=== PATIENT | male | born 1980 | race Two or more races ===

== ENCOUNTER 2019-04-17 08:39 | Emergency (ER) | payer OTHER ==
[2019-04-17 08:45] VITALS: BP 143/74; PULSE 104; TEMP 97.8; BMI 44.4
[2019-04-17] MEDS ORDERED: ONDANSETRON 4 MG/2 ML VIAL IVPUSH ONE (09:04)
[2019-04-17] MEDS ORDERED: KETOROLAC TROMETHAMINE 30 MG/1 ML VIAL IVPUSH ONE (09:04)
[2019-04-17] MEDS ORDERED: SODIUM CHLORIDE 1,000 ML IV STA (09:04)
[2019-04-17] MEDS ORDERED: ONDANSETRON 4 MG/2 ML VIAL ONE (09:22)
[2019-04-17] MEDS ORDERED: KETOROLAC TROMETHAMINE 30 MG/1 ML VIAL ONE (09:22)
--- NOTE | 2019-04-17 09:23 | PDOC ---
*Physical Exam - Vital Signs Last Vital Signs Temp Pulse Resp BP Pulse Ox 97.8 F 104 H 18 143/74 94 L 04/17/19 08:42 04/17/19 08:42 04/17/19 08:42 04/17/19 08:42 04/17/19 08:42 ED Treatment Course - LABORATORY CBC & Chemistry Diagram: 04/17/19 09:35 04/17/19 09:35 Medical Decision Making - Medical Decision Making 04/17/19 09:23 38 yo M presenting to the ER with a complaint of testicular pain Pt seen by Midlevel Provider under my direct supervision Pt interviewed and examined Ancillary studies reviewed Scrotal US- nml, no torsion, no masses, no varicocele CT - no stones, CT does not comment on presence of hernia I agree with plan as outlined by Midlevel Provider D/c with prompt PMD follow up Return for worsening symptoms 04/17/19 11:32 04/17/19 11:34 04/17/19 11:35 04/17/19 12:09 *DC/Admit/Observation/Transfer Diagnosis at time of Disposition: Abdominal pain - Discharge Dispostion Disposition: HOME Condition at time of disposition: Improved - Prescriptions Prescriptions: Ondansetron HCl [Zofran] 4 mg PO TID PRN #12 tablet PRN Reason: Nausea And/Or Vomiting - Referrals Referrals: Mike Ortega MD [Primary Care Provider] - - Patient Instructions Printed Discharge Instructions: DI for Abdominal Pain-Adult Additional Instructions: Take Zofran as needed for nausea. May take Aleve for discomfort. Please bring copy of your labs and imaging results with you to Dr. Ortega's office on April 19. - Post Discharge Activity
--- NOTE | 2019-04-17 09:32 | PDOC ---
History of Present Illness - General Chief Complaint: Pain, Acute Stated Complaint: TESTICULAR PAIN/ ABD.PAIN Time Seen by Provider: 04/17/19 09:00 History Source: Patient Exam Limitations: No Limitations - History of Present Illness Travel History: No Initial Comments: 04/17/19 09:07 38-year-old male presents to ED with complaints of lower abdomen sharp pressure worsen in the testicle area radiating to his right flank area. Patient states approximately one week ago went to his primary care doctor which had noted blood in his urine without continuation of workup including imaging. Patient denies history of renal colic, gallstones, recent travel, GI history, fever, chills, diarrhea but does state nausea. patient denies any protrusion to his abdomen, penile discharge or dysuria. Timing/Duration: reports: getting worse Quality: reports: moderate Abdominal Pain Onset Location: reports: flank Pain Radiation: reports: RLQ, other (testicles) Aggravating Factors: improves with: None Alleviating Factors: improves with: None Past History - Travel Traveled outside of the country in the last 30 days: No Close contact w/someone who was outside of country & ill: No - Past Medical History Allergies/Adverse Reactions: Allergies Allergy/AdvReac Type Severity Reaction Status Date / Time Sulfa (Sulfonamide Allergy Verified 04/17/19 08:45 Antibiotics) Home Medications: Ambulatory Orders Divalproex *ER* [Depakote *ER* -] 250 mg PO BID #14 tablet. 03/05/14 Divalproex *ER* [Depakote *ER* -] 250 mg PO DAILY #15 tablet. 03/05/14 Phenobarbital 64.8 mg PO BID 03/05/14 levETIRAcetam [Keppra -] 2,000 mg PO BID 03/05/14 levETIRAcetam [Keppra -] 2,000 mg PO BID #56 tablet 03/05/14 levETIRAcetam [Keppra -] 500 mg PO BID #60 tablet 03/05/14 COPD: No Seizures: Yes - Surgical History Cholecystectomy: Yes - Suicide/Smoking/Psychosocial Hx Smoking History: Never smoked Number of Cigarettes Smoked Daily: 0 Hx Alcohol Use: Yes Drug/Substance Use Hx: No Patient Lives Alone: No Lives with/in: spouse/SO Review of Systems - Review of Systems Able to Perform ROS?: Yes Constitutional: No: Symptoms Reported HEENTM: No: Symptoms Reported Respiratory: No: Symptoms reported Cardiac (ROS): No: Symptoms Reported ABD/GI: Yes: Nausea, Abdominal cramping : Yes: Flank Pain, Hematuria, Testicular Pain. No: Dysuria, Discharge, Testicular Mass, Testicular Swelling, Lesions Musculoskeletal: No: Symptoms Reported Integumentary: No: Symptoms Reported Neurological: No: Symptoms reported Endocrine: No: Symptoms Reported Hematologic/Lymphatic: No: Symptoms Reported *Physical Exam - Vital Signs Last Vital Signs Temp Pulse Resp BP Pulse Ox 97.8 F 104 H 18 143/74 94 L 04/17/19 08:42 04/17/19 08:42 04/17/19 08:42 04/17/19 08:42 04/17/19 08:42 - Physical Exam General Appearance: Yes: Nourished, Appropriately Dressed. No: Apparent Distress HEENT: negative: Pale Conjunctivae Respiratory/Chest: positive: Lungs Clear, Normal Breath Sounds. negative: Respiratory Distress, Accessory Muscle Use Cardiovascular: positive: Regular Rhythm, Tachycardia. negative: Murmur Gastrointestinal/Abdominal: positive: Soft, Tenderness (right upper quadrant. positive [place]'s) Male Genitalia: positive: normal genitalia. negative: discharge, testicular tenderness, testicular mass, epididymus tender Musculoskeletal: positive: CVA Tenderness (R) Extremity: positive: Normal Inspection Integumentary: positive: Normal Color, Warm, Moist Neurologic: positive: Motor Strength 5/5 (ambulatory) ED Treatment Course - LABORATORY CBC & Chemistry Diagram: 04/17/19 09:35 04/17/19 09:35 - RADIOLOGY Radiology Studies Ordered: Category Date Time Status SPIRAL- RENAL-STONE CT [CT] Stat CT Scan 04/17/19 09:04 Ordered SCROTUM AND CONTENTS US [US] Stat Ultrasound 04/17/19 09:02 Ordered Medical Decision Making - Medical Decision Making 04/17/19 09:30 IChief complaint: Right flank pain with nausea radiating to his testicle region greater in the right testicle. Patient denies any other symptoms except for noted hematuria at his PCPs office last week Exam: Right upper quadrant right flank and right suprapubic pain. No testicular edema or mass palpable. No discharge plan: labs, urine, antiemetics,Toradol, IV fluids scrotal ultrasound along with spiral CT 04/17/19 11:45 Laboratory Tests 04/17/19 04/17/19 04/17/19 09:35 09:35 09:35 WBC 9.2 Hgb 14.9 Hct 44.4 Absolute Neuts (auto) 5.6 Sodium 138 Potassium 4.2 Chloride 104 Carbon Dioxide 28 Anion Gap 6 L BUN 10.2 Creatinine 1.0 Est GFR (CKD-EPI)AfAm 111.73 Est GFR (CKD-EPI)NonAf 96.40 Random Glucose 183 H Calcium 8.8 Total Bilirubin 0.4 AST 34 ALT 52 Alkaline Phosphatase 128 H Total Protein 7.1 Albumin 3.5 Lipase 209 Urine Ketones Trace H Urine Nitrite Negative Ur Leukocyte Esterase Negative Scrotal ultrasound negative for acute pathology. Abdominal CT shows multiple mildly prominent right lower quadrant mesenteric lymph nodes seen. Correlation with 3 month follow-up MRI or CT suggested to document stability. Case discussed with patient and has a follow-up appointment with his PCP on April 19 will be given copy of all labs and results. Patient otherwise states nausea and pain has subsided. Will discharge patient home with Zofran. *DC/Admit/Observation/Transfer Diagnosis at time of Disposition: Abdominal pain - Discharge Dispostion Disposition: HOME Condition at time of disposition: Improved - Referrals Referrals: Mike Ortega MD [Primary Care Provider] - - Patient Instructions Printed Discharge Instructions: DI for Abdominal Pain-Adult Additional Instructions: Take Zofran as needed for nausea. May take Aleve for discomfort. Please bring copy of your labs and imaging results with you to Dr. Ortega's office on April 19. - Post Discharge Activity
[2019-04-17 09:42] LABS: BASO % 0.8 % (0-2.0); EOS % 1.6 % (0-4.5); HEMATOCRIT 44.4 % (35.4-49); HEMOGLOBIN 14.9 GM/dL (11.7-16.9); LYMPH % 29.6 % (8-40); MCH 29.6 pg (25.7-33.7); MCHC 33.5 g/dl (32.0-35.9); MEAN CELL VOLUME 88.2 fl (80-96); MEAN PLT VOLUME 9.6 fl (7.5-11.1); MONO % 7.1 % (3.8-10.2); NEUT % 60.9 % (42.8-82.8); PLATELET COUNT 212 K/MM3 (134-434); RBC 5.03 M/mm3 (4.00-5.60); RDW 13.9 % (11.9-15.9); WHITE BLOOD COUNT 9.2 K/mm3 (4.0-10.0)
[2019-04-17 10:07] LABS: URINE APPEARANCE CLEAR; URINE BILIRUBIN NEGATIVE (NEGATIVE); URINE COLOR YELLOW; URINE GLUCOSE (UA) NEGATIVE (NEGATIVE); URINE KETONE TRACE (NEGATIVE); URINE LEUK ESTERASE NEGATIVE (NEGATIVE); URINE NITRITE NEGATIVE (NEGATIVE); URINE PROTEIN NEGATIVE (NEGATIVE)
[2019-04-17 10:12] LABS: ALBUMIN 3.5 g/dl (3.4-5.0); BILIRUBIN,TOTAL 0.4 mg/dL (0.2-1); BLOOD UREA NITROGEN 10.2 mg/dL (7-18); CALCIUM 8.8 mg/dL (8.5-10.1); POTASSIUM 4.2 mmol/L (3.5-5.1); TOT PROT 7.1 g/dl (6.4-8.2)
== END 2019-04-17 12:00 | disposition home or self-care (01) ==
LOC: JER 08:39
PROC: 3E033GC Introduction of Other Therapeutic Substance into Peripheral Vein, Percutaneous Approach (ICD-10-PCS; principal; 2019-04-17)
PROC: 3E0333Z Introduction of Anti-inflammatory into Peripheral Vein, Percutaneous Approach (ICD-10-PCS; 2019-04-17)
DX: R10.31 Right lower quadrant pain (principal)
CPT/HCPCS: 36415; 74176-TC; 76870-TC; 80053; 81003; 83690; 85025; 87086; 96374; 96375; 99281-25; J7030

== ENCOUNTER 2019-10-19 12:28 | Observation (INO) | payer OTHER ==
[2019-10-19 12:46] VITALS: BMI 44.1
--- NOTE | 2019-10-19 12:59 | PDOC ---
History of Present Illness - General Chief Complaint: Seizure Stated Complaint: SEIZURE Time Seen by Provider: 10/19/19 12:59 History Source: Patient, Parent(s) (mother) Exam Limitations: No Limitations - History of Present Illness Initial Comments: 10/19/19 15:56 39yM w PMHx epilepsy presenting w seizure. Pt is poor historian, doesn't remember symptoms, needed mother's guidance to elicit hx. Endorsed 1 week nasal congestion, subjective fevers, multiple petit mal seizures (amnesia, blank stares) lasting up to 5s. Has been taking cough suppressant and Dayquil without relief. Has been tapered off depakote from August - mid September under Dr Post's guidance d/t side effects. Currently only taking keppra for anti- seizure. Mother noted pt usually has multiple petit seizures before grand seizure lasting >20min. Denies alcohol, illicit drug use. Denies cough, chest pain, SOB, urinary/bowel mvmt changes. PCP Dr Ortega Past History - Past Medical History Allergies/Adverse Reactions: Allergies Allergy/AdvReac Type Severity Reaction Status Date / Time Sulfa (Sulfonamide Allergy Verified 10/19/19 12:47 Antibiotics) Home Medications: Ambulatory Orders D-Methorphan/PE/Acetaminophen [Theraflu Expressmax Cold-Cough] 245.5 ml PO PRN 10/19/19 Guaifenesin [Robitussin] 10 ml PO PRN 10/19/19 Multivitamin [Multiple Vitamins] 1 each PO DAILY 10/19/19 Naproxen Sodium [Aleve] 220 mg PO PRN 10/19/19 levETIRAcetam [Keppra -] 1,000 mg PO BID 10/19/19 levETIRAcetam [Keppra -] 250 mg PO BID 10/19/19 COPD: No Seizures: Yes - Surgical History Cholecystectomy: Yes - Psycho Social/Smoking Cessation Hx Smoking History: Never smoked Number of Cigarettes Smoked Daily: 0 Hx Alcohol Use: Yes Drug/Substance Use Hx: No Review of Systems - Review of Systems Constitutional: Yes: Fever. No: Chills HEENTM: Yes: Nose Congestion. No: Eye Pain, Nose Pain, Throat Pain Respiratory: No: Cough, Shortness of Breath Cardiac (ROS): No: Chest Pain, Palpitations ABD/GI: No: Abdominal Distended, Constipated, Diarrhea, Nausea, Vomiting : No: Burning, Dysuria, Hematuria Musculoskeletal: No: Back Pain, Joint Pain Integumentary: No: Bruising, Flushing, Lesions Neurological: Yes: Seizure. No: Headache, Tingling Psychiatric: No: Anxiety, Depression, Stressors Endocrine: No: Excessive Sweating, Flushing, Intolerance to Cold, Intolerance to Heat Hematologic/Lymphatic: No: Anemia, Blood Clots *Physical Exam - Vital Signs Last Vital Signs Temp Pulse Resp BP Pulse Ox 97.9 F 100 H 18 128/81 97 10/19/19 12:41 10/19/19 12:41 10/19/19 12:41 10/19/19 12:41 10/19/19 12:41 - Physical Exam General Appearance: Yes: Nourished, Appropriately Dressed, Mild Distress HEENT: positive: EOMI, TIFFANY, Normal Voice, Nasal Congestion. negative: Scleral Icterus (R), Scleral Icterus (L), Rhinorrhea Neck: positive: Supple. negative: Tender, Rigid Respiratory/Chest: positive: Lungs Clear, Normal Breath Sounds. negative: Chest Tender, Respiratory Distress, Crackles, Rales, Rhonchi, Stridor, Wheezing Cardiovascular: positive: Regular Rhythm, Regular Rate, S1, S2. negative: Edema , Murmur Gastrointestinal/Abdominal: positive: Normal Bowel Sounds, Flat, Soft. negative : Tender, Organomegaly Musculoskeletal: negative: CVA Tenderness (R), CVA Tenderness (L) Neurologic: positive: bundle person II-XII NML intact, Fully Oriented, Alert, Normal Mood/ Affect (flat affect, intermittent confusion), Normal Response, Motor Strength 5/ 5, Responsive, Other (delayed response). negative: Sensory Deficit, Confused, Disoriented ED Treatment Course - LABORATORY CBC & Chemistry Diagram: 10/19/19 14:45 10/19/19 14:45 Medical Decision Making - Medical Decision Making 10/19/19 14:12 EKG sinus tachycardia HR 118, QTc 468, no ST changes CXR poor image, poor inspiration, no consolidation, mediastinum covered by oxygen mask ALP 160, ALP 130, AST 70, CK 210 --- 39yM w PMHx epilepsy presenting w 1wk petit seizure and grand seizure in ED. seizure likely d/t medication under dosing (tapered off depakote last month). Low concern for ACS (no ST changes, no CP) vs PNA (no focal consolidation). Elevated LFTs d/t seizure. Minimal rhabdomyolysis (CK 210). Pending drug levels , UA 120pm eyes rolled back, tongue biting, extremity convulsions lasting 5 min with agitation/confusion post ictal state until 150pm. Restraints placed. Given IM 4 ativan, 10 haldol, 6 versed, IV tylenol, 2L NS, 1g keppra Consulted Dr Post - advised load with esthela, get drug levels, ED workup, admit to hospital Admitted tele Dr Tinajero for seizure Discharge - Discharge Information Problems reviewed: Yes Clinical Impression/Diagnosis: Seizure Qualifiers: Convulsion type: unspecified Qualified Code(s): R56.9 - Unspecified convulsions Condition: Guarded - Follow up/Referral - Patient Discharge Instructions - Post Discharge Activity
[2019-10-19] MEDS ORDERED: LORazepam 2 MG/ML SDV VIAL ONE ×2 (13:15→13:18)
[2019-10-19] MEDS ORDERED: HALOPERIDOL LACTATE 5 MG/ML ONE (13:22)
[2019-10-19] MEDS ORDERED: MIDAZOLAM HCL 2 MG/2 ML SINGLE DOSE VIAL ONE ×2 (13:30→13:37)
[2019-10-19] MEDS ORDERED: SODIUM CHLORIDE 0.9% 500 ML INFUS.BAG IV ONE (14:02)
[2019-10-19] MEDS ORDERED: ACETAMINOPHEN 1000 MG/100 ML VIAL (NON FORMULARY) IVPB ONE (14:02)
[2019-10-19] MEDS ORDERED: ACETAMINOPHEN INJECTION 100 ML IVPB ONE (14:21)
[2019-10-19 15:18] LABS: BASO % 0.5 % (0-2.0); EOS % 0.6 % (0-4.5); HEMATOCRIT 47.2 % (35.4-49); HEMOGLOBIN 15.5 GM/dL (11.7-16.9); LYMPH % 32.7 % (8-40); MCH 28.5 pg (25.7-33.7); MCHC 32.8 g/dl (32.0-35.9); MEAN CELL VOLUME 86.9 fl (80-96); MEAN PLT VOLUME 9.9 fl (7.5-11.1); MONO % 5.2 % (3.8-10.2); PLATELET COUNT 269 K/MM3 (134-434); RBC 5.43 M/mm3 (4.00-5.60); RDW 13.5 % (11.9-15.9); WHITE BLOOD COUNT 12.2 K/mm3 (4.0-10.0)
[2019-10-19 15:54] LABS: ALBUMIN 3.9 g/dl (3.4-5.0); BILIRUBIN,TOTAL 0.8 mg/dL (0.2-1); BLOOD UREA NITROGEN 8.8 mg/dL (7-18); CREATININE 1.2 mg/dL (0.55-1.3); POTASSIUM 3.9 mmol/L (3.5-5.1); TOT PROT 7.8 g/dl (6.4-8.2)
--- NOTE | 2019-10-19 16:17 | PDOC ---
Documentation entered by Lizette Grande SCRIBE, acting as scribe for Melvin Dennis MD. Melvin Dennis MD: This documentation has been prepared by the Christiane plascencia Brenda, SCRIBE, under my direction and personally reviewed by me in its entirety. I confirm that the documentation accurately reflects all work, treatment, procedures, and medical decision making performed by me. Attending Attestation - Resident Resident Name: Setphen Cruz - ED Attending Attestation I have performed the following: I have examined & evaluated the patient, The case was reviewed & discussed with the resident, I agree w/resident's findings & plan, Exceptions are as noted - HPI HPI: 10/19/19 16:17 39 M with h/o epilepsy on keppra presenting to ED with increased seizure frequency. Per mother, pt has been having frequent partial seizures. He will have twitching movements and stare into space. Mother reports several over the past week. Today, pt had a GTC, prompting her to call EMS. She also notes pt has had 1 week of nasal congestion and subjective fevers. In ED, pt initially presented somnolent and post-ictal. However, while in ED he had witnessed GTC, followed by post-ictal period during which he was extremely agitated, requiring both physical and chemical restraints. Upon reassessment, pt is more awake and cooperative. Now only complains of pain in both shoulders. Denies F/C. Denies Cp/SOB. Denies MANDUJANO/N/V. Denies neck stiffness. - Physicial Exam PE: 10/19/19 16:21 GENERAL: Awake, alert, and fully oriented, in no acute distress. HEAD: No signs of trauma EYES: PERRLA, EOMI, sclera anicteric, conjunctiva clear ENT: Auricles normal inspection, hearing grossly normal, nares patent, oropharynx clear without exudates. Moist mucosa NECK: Nontender, no stepoffs, Normal ROM, supple, no lymphadenopathy, JVD, or masses LUNGS: Breath sounds equal, clear to auscultation bilaterally. No wheezes, and no crackles HEART: Regular rate and rhythm, normal S1 and S2, no murmurs, rubs or gallops ABDOMEN: Soft, nontender, normoactive bowel sounds. No guarding, no rebound. No masses EXTREMITIES: Normal range of motion, no edema. No clubbing or cyanosis. No cords, erythema, or tenderness NEUROLOGICAL: Cranial nerves II through XII intact. 5/5 strength and sensation in all extremities, Normal speech, normal gait, normal cerebellar function SKIN: Warm, Dry, normal turgor, no rashes or lesions noted. - Critical Care Time Total Critical Care Time: 60 Critical Care Statement: The care of this patient involved high complexity decision making to prevent further life threatening deterioration of the patient 's condition and/or to evaluate & treat vital organ system(s) failure or risk of failure. - Medical Decision Making 10/19/19 16:23 39 M with increased seizure frequency. Will check for infectious/metabolic process. - Labs - CT head - Neuro c/s
[2019-10-19] MEDS ORDERED: HALOPERIDOL LACTATE 5 MG/ML IM ONE (17:03)
[2019-10-19] MEDS ORDERED: MIDAZOLAM HCL 5 MG/1 ML Single Dose Vial IM ONE (17:03)
[2019-10-19] MEDS ORDERED: levETIRAcetam 500 MG/5 ML INJECTION VIAL IVPB ONE ×2 (18:12→18:39)
[2019-10-19] MEDS ORDERED: LORazepam 2 MG/ML SDV VIAL IVPUSH PRN (18:18)
[2019-10-19] MEDS ORDERED: SODIUM CHLORIDE 1,000 ML IV SCH (18:30)
--- NOTE | 2019-10-19 19:54 | HP ---
Admitting History and Physical - Primary Care Physician PCP: Dr. Galvan - Admission Chief Complaint: Seizures History of Present Illness: 39 year old male with PMHx epilepsy presenting with seizure. Pt is poor historian, doesn't remember symptoms. Spoke to mother at bedside, stated patient had been coughing/nasal congestion and subjective fever for about 1 week , and multiple petit mal seizures (amnesia, blank stares) lasting up to 5 secs. Patient has been taking dayquil without relief. Patient states he is compliant with medication when asked, has been tapered off depakote from August - mid September under Dr Post's guidance due to side effects. Currently only taking keppra for anti-seizure. Mother noted patient usually has multiple petit seizures before grand seizure lasting >20min. Patient denies alcohol, illicit drug use. Denies chest pain, SOB, urinary/bowel changes. History Source: Patient, Family Member Limitations to Obtaining History: Clinical Condition, Other (recieved history from mother at bedside) - Past Medical History SCIENTIFIC DIRECTOR: Yes: Seizure - Past Surgical History Past Surgical History: Yes: Cholecystectomy - Smoking History Smoking history: Never smoked Aproximately how many cigarettes per day: 0 - Alcohol/Substance Use Hx Alcohol Use: Yes History of Substance Use: reports: None - Social History Usual Living Arrangement: Yes: With Parent ADL: Independent History of Recent Travel: No Home Medications - Allergies Allergies/Adverse Reactions: Allergies Allergy/AdvReac Type Severity Reaction Status Date / Time Sulfa (Sulfonamide Allergy Verified 10/19/19 12:47 Antibiotics) - Home Medications Home Medications: Ambulatory Orders D-Methorphan/PE/Acetaminophen [Theraflu Expressmax Cold-Cough] 245.5 ml PO PRN 10/19/19 Guaifenesin [Robitussin] 10 ml PO PRN 10/19/19 Multivitamin [Multiple Vitamins] 1 each PO DAILY 10/19/19 Naproxen Sodium [Aleve] 220 mg PO PRN 10/19/19 levETIRAcetam [Keppra -] 1,000 mg PO BID 10/19/19 levETIRAcetam [Keppra -] 250 mg PO BID 10/19/19 Family Medical History Family Hx Cardiac Disorders: Father ( with [place]) Review of Systems - Review of Systems Constitutional: reports: Fever Eyes: reports: No Symptoms HENT: reports: Nasal Congestion Neck: reports: No Symptoms Cardiovascular: reports: No Symptoms Respiratory: reports: No Symptoms Gastrointestinal: reports: No Symptoms Genitourinary: reports: No Symptoms Musculoskeletal: reports: No Symptoms Integumentary: reports: No Symptoms Neurological: reports: Seizure Endocrine: reports: No Symptoms Hematology/Lymphatic: reports: No Symptoms Psychiatric: reports: No Symptoms Physical Examination Vital Signs: Vital Signs Temperature 97.8 F 10/19/19 18:30 Pulse Rate 96 H 10/19/19 18:30 Respiratory Rate 20 10/19/19 18:30 Blood Pressure 116/41 L 10/19/19 18:30 O2 Sat by Pulse Oximetry (%) 100 10/19/19 18:30 Constitutional: Yes: Mild Distress, Obese Eyes: Yes: Conjunctiva Clear, EOM Intact HENT: Yes: Atraumatic, Normocephalic Neck: Yes: Supple, Trachea Midline Cardiovascular: Yes: Regular Rate and Rhythm Respiratory: Yes: Regular, CTA Bilaterally Gastrointestinal: Yes: Normal Bowel Sounds, Soft Musculoskeletal: Yes: WNL Extremities: Yes: WNL Edema: No Peripheral Pulses WNL: Yes Integumentary: Yes: WNL Neurological: Yes: Alert, Lethargy Labs: CBC, BMP 10/19/19 14:45 10/19/19 14:45 Imaging - Results Chest X-ray: Report Reviewed (CXR: weak inspiration, prominent central marking, possible oxygen mask artifact) Cat Scan: Report Reviewed (CT head: no acute intracranial pathology, nonspecific 0.4 cm sclerotic focus is noted within the right paramedian aspect of the upper clivus a bone island.) EKG: Report Reviewed (EKG sinus tachycardia HR 118, QTc 468, no ST changes) Other: Report Reviewed (ALP 160, ALP 130, AST 70, CK 210) Problem List - Problems (1) Seizure Code(s): R56.9 - UNSPECIFIED CONVULSIONS Qualifiers: Convulsion type: unspecified Qualified Code(s): R56.9 - Unspecified convulsions (2) Elevated transaminase level Code(s): R74.0 - NONSPEC ELEV OF LEVELS OF TRANSAMNS & LACTIC ACID DEHYDRGNSE Assessment/Plan 39 year old male with PMHx epilepsy presenting with seizure. Pt is poor historian, doesn't remember symptoms. Spoke to mother at bedside, stated patient had been coughing/nasal congestion and subjective fever for about 1 week , and multiple petit mal seizures (amnesia, blank stares) lasting up to 5 secs. # Seizures likely due to recent medication change (tapered off depakote last month) ? r/o infection vs metabolic CT head: no acute intracranial pathology, nonspecific 0.4 cm sclerotic focus is noted within the right paramedian aspect of the upper clivus a bone island. CXR: no consolidation, mediastinum covered by oxygen mask EKG sinus tachycardia HR 118, QTc 468, no ST changes Trop: negative had episode of seizure in ED @ 1:20Pm lasting 5 min Neurology was consulted by ED Given IM 4 ativan, 10 haldol, 6 versed, IV tylenol, 2L NS, 1g keppra load with keppra - continue with 2 mg IV push q 6 hours - continue with keppra 1,250mg IVPB BID - follow up valproic, levetiracetam, and pehobarital level - follow up UCX, BCX - safety/fall precaution - follow up official read XR b/l shoulder - follow up cbc, cmp in AM - follow up EEG - Neurology to follow in AM # Elevated LFTs likely due to seizure ALP 160, ALP 130, AST 70 - repeat labs in AM, if trending upward consider ABD US - continue with IVF FEN: NPO, IVF, monitor lytes VTE: heparin SQ Dispo: tele Visit type - Emergency Visit Emergency Visit: Yes ED Registration Date: 10/19/19 Care time: The patient presented to the Emergency Department on the above date and was hospitalized for further evaluation of their emergent condition. - New Patient This patient is new to me today: Yes Date on this admission: 10/19/19 - Critical Care Critical Care patient: No
--- NOTE | 2019-10-19 20:33 | CON.NEURO ---
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 - Past Surgical History Past Surgical History: Yes: Cholecystectomy - Alcohol/Substance Use Hx Alcohol Use: Yes History of Substance Use: reports: None - Smoking History Smoking history: Never smoked Aproximately how many cigarettes per day: 0 - Social History ADL: Independent History of Recent Travel: No Home Medications - Allergies Allergies/Adverse Reactions: Allergies Allergy/AdvReac Type Severity Reaction Status Date / Time Sulfa (Sulfonamide Allergy Verified 10/19/19 12:47 Antibiotics) - Home Medications Home Medications: Ambulatory Orders D-Methorphan/PE/Acetaminophen [Theraflu Expressmax Cold-Cough] 245.5 ml PO PRN 10/19/19 Guaifenesin [Robitussin] 10 ml PO PRN 10/19/19 Multivitamin [Multiple Vitamins] 1 each PO DAILY 10/19/19 Naproxen Sodium [Aleve] 220 mg PO PRN 10/19/19 levETIRAcetam [Keppra -] 1,000 mg PO BID 10/19/19 levETIRAcetam [Keppra -] 250 mg PO BID 10/19/19 Family Medical History Family History: Unremarkable Review of Systems - Review of Systems Constitutional: reports: No Symptoms Eyes: reports: No Symptoms HENT: reports: No Symptoms Neurological: reports: No Symptoms Physical Exam-Neuro Vital Signs: Vital Signs Temperature 97.8 F 10/19/19 18:30 Pulse Rate 96 H 10/19/19 18:30 Respiratory Rate 20 10/19/19 18:30 Blood Pressure 116/41 L 10/19/19 18:30 O2 Sat by Pulse Oximetry (%) 100 10/19/19 18:30 Constitutional: Yes: Well Nourished Neck: Yes: WNL Labs: CBC, BMP 10/19/19 14:45 01/02/20 14:45 - Neuro Exam Level Of Consciousness: Yes: Oriented to Person, Oriented to Place, Oriented to Time Eyes: Yes: PERRLA Speech: WNL Dominant Hand: Right Cranial Nerves II-XII Intact: Yes Gag: Present DTR's: 1+ Left Bicep, 1+ Right Bicep, 1+ Left Brachioradialis, 1+ Right Brachioradialis Response to light touch: Normal Response to pain prick: Normal Response to temperature: Normal Motor Strength: 3/5: Left Arm, Right Arm, Left Leg, Right Leg Gait: Deferred Imaging - Results Cat Scan: Image Reviewed Problem List - Problems (1) Seizure Assessment/Plan: Breakthrough seizure on monotherapy with Keppra probbaly due to recent flu or cold High LFTs they were normal 04/2019 Keppra does not affect the liver 1. Neuro cheks 2. Keppra 1500 mg po q12 3. Hepatitis profile 4. GGT 5. Seizure precautions 6. Ativan prn seizure Thank you for [facility] kind referral Bob Post Code(s): R56.9 - UNSPECIFIED CONVULSIONS Qualifiers: Convulsion type: unspecified Qualified Code(s): R56.9 - Unspecified convulsions
[2019-10-19] MEDS ORDERED: levETIRAcetam 500 MG/5 ML INJECTION VIAL IVPB SCH (22:00)
[2019-10-19] MEDS: levETIRAcetam 500 MG/5 ML INJECTION VIAL IVPB SCH (23:09)
[2019-10-19] MEDS: HEPARIN NA (PORCINE) 5,000 UNITS/ML 1ML VIAL SQ SCH (23:09)
[2019-10-20 02:10] LABS: PH,URINE 6.5 (5.0-8.0); URINE APPEARANCE CLEAR; URINE BILIRUBIN NEGATIVE (NEGATIVE); URINE COLOR YELLOW; URINE GLUCOSE (UA) NEGATIVE (NEGATIVE); URINE KETONE NEGATIVE (NEGATIVE); URINE LEUK ESTERASE NEGATIVE (NEGATIVE); URINE NITRITE NEGATIVE (NEGATIVE); URINE PROTEIN NEGATIVE (NEGATIVE); URINE UROBILINOGEN 0.2 mg/dL (0.2-1.0)
[2019-10-20 02:20] LABS: COCAINE, UR NEGATIVE ng/ml (CUTOFF=300); METHADONE, UR NEGATIVE ng/ml (CUTOFF=300); OPIATES, URI NEGATIVE ng/ml (CUTOFF=300); PHENCYCLIDINE,URINE NEGATIVE ng/ml (CUTOFF=25); URINE AMPHETAMINES NEGATIVE ng/ml (CUTOFF=500); URINE BARBITURATES NEGATIVE ng/ml (CUTOFF=200)
[2019-10-20 02:35] LABS: URINE BENZODIAZEPINES POSITIVE ng/ml (CUTOFF=200)
[2019-10-20 07:31] LABS: HEMATOCRIT 39.8 % (35.4-49); HEMOGLOBIN 13.2 GM/dL (11.7-16.9); MCH 28.5 pg (25.7-33.7); MCHC 33.1 g/dl (32.0-35.9); MEAN CELL VOLUME 86.3 fl (80-96); MEAN PLT VOLUME 10.1 fl (7.5-11.1); PLATELET COUNT 227 K/MM3 (134-434); RBC 4.62 M/mm3 (4.00-5.60); RDW 13.9 % (11.9-15.9); WHITE BLOOD COUNT 9.4 K/mm3 (4.0-10.0)
[2019-10-20 07:40] LABS: ALBUMIN 3.2 g/dl (3.4-5.0); BILIRUBIN,TOTAL 0.9 mg/dL (0.2-1); BLOOD UREA NITROGEN 7.3 mg/dL (7-18); CALCIUM 8.3 mg/dL (8.5-10.1); CREATININE 0.8 mg/dL (0.55-1.3); POTASSIUM 3.8 mmol/L (3.5-5.1); TOT PROT 6.4 g/dl (6.4-8.2)
[2019-10-20] MEDS: levETIRAcetam 500 MG/5 ML INJECTION VIAL IVPB SCH ×2 (09:43→21:14)
[2019-10-20] MEDS: HEPARIN NA (PORCINE) 5,000 UNITS/ML 1ML VIAL SQ SCH ×2 (09:43→21:13)
--- NOTE | 2019-10-20 10:43 | PN ---
Progress Note, Physician Chief Complaint: ASLEEP GIVEN MEDICATIONS IN E.R. AND NOW SEDATED NO SEIZURE ACTIVITY AT [facility] POINT HERE IN HOSPITAL FLOOR - Current Medication List Current Medications: Active Medications Heparin Sodium (Porcine) (Heparin -) 5,000 unit SQ BID [facility] Last Admin: 10/20/19 09:43 Dose: 5,000 unit Sodium Chloride (Normal Saline -) 1,000 mls @ 100 mls/hr IV ASDIR [facility] Last Admin: 10/19/19 18:30 Dose: 100 mls/hr Levetiracetam (Keppra Injection -) 1,500 mg IVPB BID [facility] Last Admin: 10/20/19 09:43 Dose: 1,500 mg Lorazepam (Ativan Injection -) 2 mg IVPUSH Q6H PRN PRN Reason: seizures - Objective Vital Signs: Vital Signs Temperature 97.9 F 10/20/19 05:00 Pulse Rate 108 H 10/20/19 05:00 Respiratory Rate 18 10/20/19 05:00 Blood Pressure 102/85 10/20/19 05:00 O2 Sat by Pulse Oximetry (%) 100 10/19/19 20:00 Constitutional: Yes: No Distress Cardiovascular: Yes: Regular Rate and Rhythm Respiratory: Yes: WNL Gastrointestinal: Yes: WNL Genitourinary: Yes: WNL Musculoskeletal: Yes: Other Neurological: Yes: Other Labs: CBC, BMP 10/20/19 05:50 10/20/19 05:50 Problem List - Problems (1) Elevated transaminase level Code(s): R74.0 - NONSPEC ELEV OF LEVELS OF TRANSAMNS & LACTIC ACID DEHYDRGNSE (2) Seizure Code(s): R56.9 - UNSPECIFIED CONVULSIONS Qualifiers: Convulsion type: unspecified Qualified Code(s): R56.9 - Unspecified convulsions Assessment/Plan SEIZURE RISKS APPLIED NEUROLOGY EVAL IVF MONITOR ON TELE CHECK LABS
--- NOTE | 2019-10-20 13:25 | EKG ---
Test Reason : Blood Pressure : / mmHG Vent. Rate : 118 BPM Atrial Rate : 118 BPM P-R Int : 150 ms QRS Dur : 098 ms QT Int : 334 ms P-R-T Axes : 036 025 033 degrees QTc Int : 468 ms SINUS TACHYCARDIA OTHERWISE NORMAL ECG WHEN COMPARED WITH ECG OF 05-MAR-2014 13:30, NONSPECIFIC T WAVE ABNORMALITY HAS REPLACED INVERTED T WAVES IN INFERIOR LEADS Confirmed by PIPPA FIELD MD ([id number]) on 10/20/2019 1:25:26 PM Referred By: Confirmed By:PIPPA FIELD MD
--- NOTE | 2019-10-20 19:20 | PN ---
Progress Note, Physician History of Present Illness: events noted chart reviewed Alert awake oriented Still feels sick to stomach Mild nausea no seizure activity on the higher Keppra - Current Medication List Current Medications: Active Medications Heparin Sodium (Porcine) (Heparin -) 5,000 unit SQ BID [facility] Last Admin: 10/20/19 09:43 Dose: 5,000 unit Levetiracetam (Keppra Injection -) 1,500 mg IVPB BID [facility] Last Admin: 10/20/19 09:43 Dose: 1,500 mg Lorazepam (Ativan Injection -) 2 mg IVPUSH Q6H PRN PRN Reason: seizures - Objective Vital Signs: Vital Signs Temperature 97.8 F 10/20/19 18:00 Pulse Rate 88 10/20/19 18:00 Respiratory Rate 10/20/19 18:00 Blood Pressure 125/76 10/20/19 18:00 O2 Sat by Pulse Oximetry (%) 94 L 10/20/19 09:00 Constitutional: Yes: Well Nourished Eyes: Yes: WNL Neurological: Yes: Alert, Oriented, Babinski negative ...Motor Strength: WNL Labs: CBC, BMP 10/20/19 05:50 10/20/19 05:50 Problem List - Problems (1) Seizure Assessment/Plan: 11. Seizure precautions. 2. Keppra the same. 3. CAT scan of the abdomen Code(s): R56.9 - UNSPECIFIED CONVULSIONS Qualifiers: Convulsion type: unspecified Qualified Code(s): R56.9 - Unspecified convulsions
[2019-10-21] MEDS: levETIRAcetam 500 MG/5 ML INJECTION VIAL IVPB SCH (09:52)
[2019-10-21] MEDS: HEPARIN NA (PORCINE) 5,000 UNITS/ML 1ML VIAL SQ SCH (09:53)
[2019-10-21 10:32] VITALS: BP 127/68; PULSE 91; TEMP 98.1
--- NOTE | 2019-10-21 13:15 | DS ---
Physical Examination Vital Signs: Vital Signs Temperature 98.1 F 10/21/19 10:00 Pulse Rate 91 H 10/21/19 10:00 Respiratory Rate 18 10/21/19 10:00 Blood Pressure 127/68 10/21/19 10:00 O2 Sat by Pulse Oximetry (%) 96 10/21/19 09:00 Findings/Remarks: AWAKE ALERT DENIES HEADACHE FEVER OR CHILLS Constitutional: Yes: No Distress Cardiovascular: Yes: WNL Respiratory: Yes: WNL Musculoskeletal: Yes: WNL Extremities: Yes: WNL Edema: No Neurological: Yes: WNL ...Motor Strength: WNL Psychiatric: Yes: WNL Labs: CBC, BMP 10/20/19 05:50 10/20/19 05:50 Discharge Summary Problems reviewed: Yes Reason For Visit: SEIZURE Current Active Problems Elevated transaminase level (Acute) Seizure (Acute) Procedures: Principal: CT SCAN Hospital Course: ADMITTED FOR SEIZURE D/O, MEDS ADJUSTED NEUROLOGY WORKUP DONE Plan of Treatment: KEPPRA 1250MG BID F/U NEUROLOGY Condition: Good - Instructions Diet, Activity, Other Instructions: SEE DR OMID MORROW IN 3 DAYS LOW FAT LOW SODIUM DIET Disposition: HOME - Home Medications Comprehensive Discharge Medication List: Ambulatory Orders Guaifenesin [Robitussin -] 10 ml PO PRN 10/19/19 Multivitamin [Multiple Vitamins] 1 each PO DAILY 10/19/19 Naproxen Sodium [Aleve] 220 mg PO PRN 10/19/19 levETIRAcetam [Keppra -] 1,000 mg PO BID 10/19/19 levETIRAcetam [Keppra -] 250 mg PO BID #60 tablet 10/21/19
[2019-10-22 06:41] LABS: HEP B CORE AB, TOT Negative (Negative)
== END 2019-10-21 13:40 | disposition home or self-care (01) ==
LOC: JER 12:28 → JERBED 18:13 → J4W 20:18
PROVIDERS: ATTEND Family Medicine
PROC: 3E033NZ Introduction of Analgesics, Hypnotics, Sedatives into Peripheral Vein, Percutaneous Approach (ICD-10-PCS; principal; 2019-10-19)
PROC: 3E023GC Introduction of Other Therapeutic Substance into Muscle, Percutaneous Approach (ICD-10-PCS; 2019-10-19)
PROC: 3E013GC Introduction of Other Therapeutic Substance into Subcutaneous Tissue, Percutaneous Approach (ICD-10-PCS; 2019-10-19)
PROC: 3E0337Z Introduction of Electrolytic and Water Balance Substance into Peripheral Vein, Percutaneous Approach (ICD-10-PCS; 2019-10-19)
DX: G40.802 Other epilepsy, not intractable, without status epilepticus (principal); R74.0 Nonspecific elevation of levels of transaminase and lactic acid dehydrogenase [LDH]; Z88.2 Allergy status to sulfonamides
CPT/HCPCS: 36415; 70450-TC; 71045-TC-FY; 73030-TC-LT-FY; 73030-TC-RT-FY; 80053; 80164; 80177; 80184; 80307; 81003; 82172; 82550; 82553; 82962; 82977; 83010; 83605; 83883; 84460; 85025; 85027; 86704; 86705; 86706; 86707; 86708; 87040; 87086; 87804; 93005; 93010; 95816; 96372; 96374; 96375; 96376; 99283-25; G0378; J0131; J1644; J7030